=== PATIENT | female | born 1945 | race African-American/Black ===

== ENCOUNTER 2019-04-04 09:13 | Outpatient (CLI) | payer MEDICARE, MEDICAID ==
[~2019-04-04 09:13] MED LIST: ALIGN4 M1 PO; AMITIZA24 MCG ORAL; AMLODIPINE BES2.5 MG PO; DEXILANT60 MG PO; DOCUSATE CALCI240 MG PO; HYDROCODON-ACE1 EA15 ORAL; LINZESS145 MCG PO; METOPROLOL SUCC25 MG PO; PANTOPRAZOLE SO20 MG PO; POTASSIUM CHLO20 ME2 PO; SIMPONI50 MG/0.1 SQ; SIMVASTATIN10 MG ORAL; XARELTO20 MG PO
[2019-04-04] MEDS ORDERED: ASPIRIN EC81 MG ORAL (13:18)
[2019-04-04] MEDS ORDERED: SIMPONI50 MG/0.5 SQ (13:18)
[2019-04-04] MEDS ORDERED: OMEPRAZOLE40 M1 ORAL (13:18)
[2019-04-04] MEDS ORDERED: AMLODIPINE BESY10 MG ORAL (13:18)
[2019-04-04] MEDS ORDERED: CALCIUM500 M2 PO (13:18)
[2019-04-04] MEDS ORDERED: VITAMIN D2000 UNI3 PO (13:18)
[2019-04-04] MEDS ORDERED: SIMVASTATIN10 MG ORAL (13:18)
[2019-04-04] MEDS ORDERED: NORCO 10-325 T1 EACH ORAL (13:18)
[2019-04-04] MEDS ORDERED: MILK OF MA400 MG/51 ORAL (13:18)
[2019-04-04 13:22] VITALS: BP 138/70
--- NOTE | 2019-04-04 16:00 | Consultation ---
DATE OF CONSULTATION: 04/04/2019 CHIEF COMPLAINT: 1. Abdominal pain. 2. Constipation. HISTORY OF PRESENT ILLNESS: This is a very pleasant 73-year-old female known to us from 2014 and the last time when we saw her she had chronic constipation, colonic polyps, and also pancreatic cyst. The patient was referred back to us for evaluation of repeat colonoscopy given it was 5 years and also the patient has the pancreatic cyst which is growing in size, it used to be 9 mm and now it is about 12 mm. PAST MEDICAL HISTORY: 1. Hypertension. 2. Constipation. 3. Hypercholesteremia. 4. Pancreatic cyst. 5. GERD. ALLERGIES: No known allergies. MEDICATIONS: Please see medication reconciliation list. SOCIAL HISTORY: The patient denies any tobacco, alcohol, or drug abuse. FAMILY HISTORY: Noncontributory. REVIEW OF SYSTEMS: A 10-point review of systems was performed and was positive for constipation, gastroesophageal reflux disease, abdominal pain. PHYSICAL EXAMINATION: VITAL SIGNS: Temperature 98.2, blood pressure 138/70, pulse is 82, respirations 20. HEENT: Normocephalic and atraumatic. Sclerae anicteric. NECK: Supple. No evidence of obvious lymphadenopathy. CARDIOVASCULAR: Regular rate and rhythm. Plus S1 and S2. LUNGS: Decreased breath sounds bilaterally based on supine exam. ABDOMEN: Soft and nontender. No rebound. No guarding. No peritoneal sign. EXTREMITIES: No cyanosis. No clubbing. No edema. ASSESSMENT AND PLAN: This is a 73-year-old female with constipation. We will start the patient on Linzess 145 trial one tablet daily before breakfast. The patient to let us know if it works for her. 1. Colonoscopy. The patient is due for another one. The patient was given instruction for colonoscopy and the prep. The patient will call back for scheduling for colonoscopy. 2. Pancreatic cyst is growing in size. The patient needs EUS, but we decided the patient to have a colonoscopy first and then when she comes back, we are going to schedule her for EUS another day. I want to thank, Dr. Edward Vargas, for this kind referral. Jett Londono M.D. DR: Shaw JOB#: [id number] CC: Edward Vargas M.D.; Fax#: [phone]
== END 2019-04-04 11:13 | disposition home or self-care (01) ==
LOC: PAN 09:13
DX: R10.9 Unspecified abdominal pain (principal); K59.00 Constipation, unspecified; I10 Essential (primary) hypertension; E78.00 Pure hypercholesterolemia, unspecified; K21.9 Gastro-esophageal reflux disease without esophagitis; K86.2 Cyst of pancreas

== ENCOUNTER 2019-04-21 06:46 | Day surgery (SDC) | payer MEDICARE, MEDICAID ==
[2019-04-21] VITALS (9 sets, daily range): BP systolic 101–140; BP diastolic 49–73
[~2019-04-21] VITALS: Ht 167.6 cm; Wt 83.9 kg
[~2019-04-21 06:46] MED LIST changes: +AMLODIPINE BESY10 MG ORAL; +ASPIRIN EC81 MG ORAL; +CALCIUM500 M2 PO; +MILK OF MA400 MG/51 ORAL; +NORCO 10-325 T1 EACH ORAL; +OMEPRAZOLE40 M1 ORAL; +SIMPONI50 MG/0.5 SQ; +VITAMIN D2000 UNI3 PO
[2019-04-21] MEDS ORDERED: LR 1000ml 1,000 ML IVLG SCH (07:35)
[2019-04-21] MEDS ORDERED: LR 1000ml ONE (09:00)
[2019-04-21] MEDS ORDERED: Propofol 200mg/20ml IV ONE (09:00)
[2019-04-21] MEDS ORDERED: Lidocaine 1% MPF 10mg/ml 5ml ONE (09:00)
--- NOTE | 2019-04-21 09:04 | Short Stay Surgery H&P ---
History of Present Illness History of Present Illness Chief Complaint see office note HPI Willi Richardson is a 73 year old female who was admitted on for Colonoscopy Screening Patient History Allergies: Coded Allergies: IODINE (Verified Allergy, 01/10/13) Medication History Scheduled Amlodipine Besylate* (Amlodipine Besylate*), 10 MG ORAL DAILY, (Reported) Aspirin Ec* (Aspirin Ec*), 81 MG ORAL DAILY, (Reported) Calcium Carbonate (Calcium), 500 MG PO DAILY, (Reported) Cholecalciferol (Vitamin D3) (Vitamin D), 2,000 UNIT PO DAILY, (Reported) Golimumab (Simponi), 50 MG SQ QWEEK, (Reported) Magnesium Hydroxide* (Milk Of Magnesia*), 30 ML ORAL DAILY, (Reported) Omeprazole (Omeprazole), 40 MG ORAL DAILY, (Reported) Simvastatin (Zocor), 10 MG ORAL BEDTIME, (Reported) Scheduled PRN Hydrocodone Bit/Acetaminophen 10-325* ([place] 10-325*), 1 TAB ORAL Q6H PRN for For Pain, (Reported) Physical Exam Vital Signs Last Vital Signs Date Time Temp Pulse Resp B/P (MAP) Pulse Ox O2 Delivery O2 Flow Rate FiO2 04/21/19 07:34 Room Air 04/21/19 07:34 98.6 71 17 140/73 97 Plan Attestation Are the patient's medical conditions optimized for surgery? Jett Londono MD Apr 21, 2019 09:04
--- NOTE | 2019-04-21 09:04 | Pre-Procedure Note/Attestation ---
Pre-Procedure Note/Attestation Complete Prior to Procedure Planned Procedure: not applicable Procedure Narrative: colonoscopy Indications for Procedure Pre-Operative Diagnosis: screening Attestation I attest that I discussed the nature of the procedure; its benefits; risks and complications; and alternatives (and the risks and benefits of such alternatives ), prior to the procedure, with the patient (or the patient's legal entry level account representative). I attest that, if there was a reasonable possibility of needing a blood transfusion, the patient (or the patient's legal entry level account representative) was given the [facility] standardized written summary, pursuant to the Ad[place] Blood Safety Act ([place] Health and Safety Code # 1645, as amended). I attest that I re-evaluated the patient just prior to the surgery and that there has been no change in the patient's H&P, except as documented below: Jett Londono MD Apr 21, 2019 09:04
[2019-04-21 09:10] LABS: BASOPHILS % (AUTO) 1.1 % (0.0-2.0); EOSINOPHILS % (AUTO) 1.1 % (0.0-3.0); HEMATOCRIT 40.6 % (37.0-47.0); HEMOGLOBIN 13.2 G/DL (12.0-16.0); MEAN CORPUSCULAR VOLUME 83 FL (80-99); MONOCYTES % (AUTO) 8.4 % (1.0-10.0); NEUTROPHILS % (AUTO) 38.4 % (45.0-75.0); PLATELET COUNT 261 K/UL (150-450); RED BLOOD COUNT 4.89 M/UL (4.20-5.40); RED CELL DISTRIBUTION WIDTH 11.8 % (11.6-14.8)
--- NOTE | 2019-04-21 09:24 | Anethesia Preoperative Eval ---
Anesthesia Pre-op PMH/ROS General Date of Evaluation: Apr 21, 2019 Time of Evaluation: 08:50 Anesthesiologist: Kari Alejandro CRNA ASA Score: ASA 3 Mallampati Score Class I : Soft palate, uvula, fauces, pillars visible Class II: Soft palate, uvula, fauces visible Class III: Soft palate, base of uvula visible Class IV: Only hard plate visible Mallampati Classification: Class III Surgeon: Isra Diagnosis: Colon Screening Surgical Procedure: Colonoscopy Anesthesia History: none Family History: no anesthesia problems Allergies: Coded Allergies: IODINE (Verified Allergy, 01/10/13) Medications: see eMAR Patient NPO?: Yes NPO Date: Apr 21, 2019 NPO Time: 00:00 Past Medical History Cardiovascular: Reports: HTN, other - Hypercholesterolemia; Denies: CAD, [place], valve dz, arrhythmia Pulmonary: Reports: other - Pulmonary embolism; Denies: asthma, COPD, JAMMIE Gastrointestinal/Genitourinary: Reports: GERD, other - pancreatic cyst; Denies: CRI, ESRD Neurologic/Psychiatric: Reports: CVA - 2013; RT sided weakness; Denies: dementia, depression/anxiety, TIA, other Endocrine: Denies: DM, hypothyroidism, steroids, other HEENT: Reports: other - parathyroid mass s/p parathyroidectomy; Denies: cataract (L), cataract (R), glaucoma, CIRCLE (L), CIRCLE (R) Hematology/Immune: Denies: anemia, DVT, bleeding disorder, other Musculoskeletal/Integumentary: Reports: OA; Denies: RA, DJD, DDD, edema, other PMH Narrative: as noted above PSxH Narrative: appendectomy, hysterectomy, colonoscopy, parathyroidectomy Anesthesia Pre-op Phys. Exam Physician Exam Last Vital Signs Date Time Temp Pulse Resp B/P (MAP) Pulse Ox O2 Delivery O2 Flow Rate FiO2 04/21/19 07:34 Room Air 04/21/19 07:34 98.6 71 17 140/73 97 Constitutional: NAD Neurologic: other Cardiovascular: RRR Respiratory: CTA Gastrointestinal: S/NT/ND Airway Exam Mallampati Score: Class II MO: full Neck: FROM TMD: > 3 FB Teeth: intact Dentures: no upper, no lower Anesthesia Pre-op A/P Studies Pre-op Studies: EKG - 1st degree HD Risk Assessment & Plan Assessment: ASA 3. ok to proceed Plan: MAC Status Change Before Surgery: No Pre-Antibiotics Given Within 1 Hr of Incision: No Kari Alejandro CRNA Apr 21, 2019 09:24
[2019-04-21 09:31] LABS: ALANINE AMINOTRANSFERASE 24 U/L (12-78); ALKALINE PHOSPHATASE 109 U/L (46-116); AMYLASE 53 U/L (25-115); ANION GAP 6 mmol/L (5-15); ASPARTATE AMINO TRANSFERASE 15 U/L (15-37); BILIRUBIN,TOTAL 0.6 MG/DL (0.2-1.0); BLOOD UREA NITROGEN 13 mg/dL (7-18); CALCIUM 9.5 MG/DL (8.5-10.1); CARBON DIOXIDE 30 MMOL/L (21-32); CHLORIDE 106 MMOL/L (98-107); CREATININE 0.8 MG/DL (0.55-1.30); POTASSIUM 4.1 MMOL/L (3.5-5.1); SODIUM 142 MMOL/L (136-145)
--- NOTE | 2019-04-21 09:32 | Endoscopy Procedure Note ---
Endoscopy Procedure Note General Indication for Procedure: colon cancer h/o Procedures Performed: colonoscopy Operative Findings/Diagnosis: hemorrhoids Specimen: none Pt Tolerated Procedure Well: Yes Estimated Blood Loss: none Anesthesia Anesthesiologist: charles Anesthesia: MAC Inserted Devices Implant(s) used?: No Quality Quality of Bowel Preparation: Good Did scope reach the cecum?: Yes Was there any complications?: No GI Core Measures 50 yrs or older w/o bx or poly: No 10yrs. F/U recommended: Yes If not recommended, why?: Above average risk 18 years or older w/prev. colo: Yes <3yrs. since last colonoscopy: No Jett Londono MD Apr 21, 2019 09:32
--- NOTE | 2019-04-21 09:42 | Immediate Post-Op Evaluation ---
Immediate Post-Op Evalulation Immediate Post-Op Evalulation Procedure: diagnostic colonoscopy Date of Evaluation: Apr 21, 2019 Time of Evaluation: 09:40 IV Fluids: LR 500 ml Blood Pressure Systolic: 123 Blood Pressure Diastolic: 49 Pulse Rate: 72 Respiratory Rate: 20 O2 Sat by Pulse Oximetry: 100 Temperature (Fahrenheit): 97.7 Pain Score (1-10): 0 Nausea: No Vomiting: No Complications none Patient Status: awake, patent Hydration Status: adequate Given Within 1 Hr of Incision: Kari Malagon CRNA Apr 21, 2019 09:42
--- NOTE | 2019-04-21 11:18 | 48 Hour Post Anesthesia Eval ---
Post Anesthesia Evaluation Procedure: diagnostic colonoscopy Date of Evaluation: Apr 21, 2019 Time of Evaluation: 11:16 Blood Pressure Systolic: 129 0: 69 Pulse Rate: 70 Respiratory Rate: 22 Temperature (Fahrenheit): 97.6 O2 Sat by Pulse Oximetry: 97 Airway: patent Nausea: No Vomiting: No Pain Intensity: 0 Hydration Status: adequate Cardiopulmonary Status: stable Mental Status/LOC: patient returned to baseline Follow-up Care/Observations: per GI Post-Anesthesia Complications: none Follow-up care needed: N/A Kari Alejandro CRNA Apr 21, 2019 11:18
--- NOTE | 2019-04-21 15:45 | Procedure Note ---
DATE OF PROCEDURE: 04/21/2019 SURGEON: Jett Londono M.D. PROCEDURE: Colonoscopy. ANESTHESIA: Per Kari BEY. INSTRUMENT: Olympus adult flexible colonoscope. INDICATION: History of colon cancer, followup colonoscopy. REASON FOR PROCEDURE: The procedure, risks, benefits, and possible consequences, including hemorrhage, aspiration, perforation and infection, and alternative treatments, were explained to the patient/legal guardian by Dr. Jett Londono and the patient/legal guardian understood and accepted these risks. DESCRIPTION OF PROCEDURE: After informed consent was obtained and the patient was adequately sedated, first rectal exam performed, which was positive for internal hemorrhoids. Then the scope was advanced from the rectum into the cecum documented by appendiceal orifice, ileocecal valve, and right upper quadrant palpation. This procedure was very challenging given prior colonic surgeries. Quality of prep overall was good. The patient had evidence of no obvious mass or polyp seen in this colonoscopy examination. Retroflexion of rectum was performed, which showed evidence of internal hemorrhoids. SUMMARY OF FINDINGS: 1. Challenging colonoscopy. We were able to get into the cecum. 2. Internal hemorrhoids. RECOMMENDATIONS: Repeat colonoscopy in one year. I want to thank Dr. Edward Vargas for this kind referral. Jett Londono M.D. DR: CARLOS JOB#: [id number] CC: Edward Vargas M.D.; Fax#: [phone]
== END 2019-04-21 10:50 | disposition home or self-care (01) ==
LOC: GAS 06:46
DX: Z12.11 Encounter for screening for malignant neoplasm of colon (principal); K64.8 Other hemorrhoids; I10 Essential (primary) hypertension; E78.00 Pure hypercholesterolemia, unspecified; K21.9 Gastro-esophageal reflux disease without esophagitis; G81.91 Hemiplegia, unspecified affecting right dominant side; Z90.89 Acquired absence of other organs; Z90.710 Acquired absence of both cervix and uterus; E89.0 Postprocedural hypothyroidism; Z86.711 Personal history of pulmonary embolism; Z85.038 Personal history of other malignant neoplasm of large intestine
CPT/HCPCS: 36415; 80053; 82150; 83690; 85025; 93005; G0121; J2704; J7120; 94003; 94150

== ENCOUNTER 2019-05-05 08:11 | Day surgery (SDC) | payer MEDICARE, MEDICAID ==
[2019-05-05] VITALS (11 sets, daily range): BP systolic 97–128; BP diastolic 45–74
[~2019-05-05] VITALS: Ht 170.2 cm; Wt 83.9 kg
[~2019-05-05 08:11] MED LIST changes: +LR 1000ml 1,000 ML IV SCH
[2019-05-05] MEDS ORDERED: LIPITOR20 MG ORAL (09:16)
--- NOTE | 2019-05-05 09:36 | Anethesia Preoperative Eval ---
Anesthesia Pre-op PMH/ROS General Date of Evaluation: May 05, 2019 Time of Evaluation: 10:00 Anesthesiologist: Kari Alejandro CRNA ASA Score: ASA 3 Mallampati Score Class I : Soft palate, uvula, fauces, pillars visible Class II: Soft palate, uvula, fauces visible Class III: Soft palate, base of uvula visible Class IV: Only hard plate visible Mallampati Classification: Class II Surgeon: Spring Diagnosis: GERD, pancreatic cyst Surgical Procedure: EUS Family History: no anesthesia problems Allergies: Coded Allergies: IODINE (Verified Allergy, Severe, HIVES, 05/05/19) Medications: see eMAR Patient NPO?: Yes NPO Date: May 05, 2019 NPO Time: 00:00 Past Medical History Cardiovascular: Reports: HTN, other - hypercholesterolemia, c/o angina, palpitations intermittently; Denies: CAD, [place], valve dz, arrhythmia Pulmonary: Denies: asthma, COPD, JAMMIE, other Gastrointestinal/Genitourinary: Reports: GERD, other - pancreatic cyst; Denies: CRI, ESRD Neurologic/Psychiatric: Reports: CVA; Denies: dementia, depression/anxiety, TIA, other Endocrine: Denies: DM, hypothyroidism, steroids, other HEENT: 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 Exam Physician Exam Last Vital Signs Date Time Temp Pulse Resp B/P (MAP) Pulse Ox O2 Delivery O2 Flow Rate FiO2 05/05/19 09:16 Room Air 05/05/19 09:03 98.2 66 18 111/73 96 Constitutional: NAD Neurologic: other - alert & oriented x 3 Cardiovascular: RRR Respiratory: CTA Gastrointestinal: S/NT/ND Airway Exam Mallampati Score: Class II MO: full Neck: FROM TMD: > 3 FB ROM: full Teeth: missing Dentures: no upper, no lower Anesthesia Pre-op A/P Studies Pre-op Studies: EKG - NSR, possible anterior infarct Risk Assessment & Plan Assessment: ASA 3, ok to proceed Plan: MAC Status Change Before Surgery: No Pre-Antibiotics Given Within 1 Hr of Incision: Kari Malagon CRNA May 05, 2019 09:36
--- NOTE | 2019-05-05 09:58 | Pre-Procedure Note/Attestation ---
Pre-Procedure Note/Attestation Complete Prior to Procedure Planned Procedure: not applicable Procedure Narrative: eus Indications for Procedure Pre-Operative Diagnosis: panc cyst Attestation I attest that I discussed the nature of the procedure; its benefits; risks and complications; and alternatives (and the risks and benefits of such alternatives ), prior to the procedure, with the patient (or the patient's legal guest relations representative). I attest that, if there was a reasonable possibility of needing a blood transfusion, the patient (or the patient's legal guest relations representative) was given the [facility] standardized written summary, pursuant to the Adi [place] Blood Safety Act ([place] Health and Safety Code # 1645, as amended). I attest that I re-evaluated the patient just prior to the surgery and that there has been no change in the patient's H&P, except as documented below: Jett Londono MD May 05, 2019 09:58
--- NOTE | 2019-05-05 09:59 | Short Stay Surgery H&P ---
History of Present Illness History of Present Illness Chief Complaint panc cyst HPI Willi Richardson is a 73 year old female who was admitted on for Pancreatic Cyst Patient History Allergies: Coded Allergies: IODINE (Verified Allergy, Severe, HIVES, 05/05/19) PAST MEDICAL HISTORY: (1) CVA (cerebral infarction) (2) Hypernatremia (3) Colon polyps (4) HTN (hypertension) (5) GERD (gastroesophageal reflux disease) (6) DVT (deep venous thrombosis) (7) Weight loss (8) Hypercholesteremia (9) Constipation (10) ACS (acute coronary syndrome) (11) Pulmonary embolus (12) Elevated LFTs Medication History Scheduled Amlodipine Besylate* (Amlodipine Besylate*), 10 MG ORAL DAILY, (Reported) Aspirin Ec* (Aspirin Ec*), 81 MG ORAL DAILY, (Reported) Atorvastatin Calcium* (Lipitor*), 20 MG ORAL BEDTIME, (Reported) Calcium Carbonate (Calcium), 500 MG PO DAILY, (Reported) Cholecalciferol (Vitamin D3) (Vitamin D), 2,000 UNIT PO DAILY, (Reported) Golimumab (Simponi), 50 MG SQ once a month, (Reported) Magnesium Hydroxide* (Milk Of Magnesia*), 30 ML ORAL DAILY, (Reported) Scheduled PRN Hydrocodone Bit/Acetaminophen 10-325* ([place] 10-325*), 1 TAB ORAL Q6H PRN for For Pain, (Reported) Discontinued Medications Omeprazole (Omeprazole), 40 MG ORAL DAILY, (Reported) Discontinued Reason: Pt stopped taking med Simvastatin (Zocor), 10 MG ORAL BEDTIME, (Reported) Discontinued Reason: Pt stopped taking med Review of Systems Cardiovascular: Reports: no symptoms Respiratory: Reports: no symptoms Skeletal: Reports: no symptoms Gastrointestinal: Reports: no symptoms Genitourinary: Reports: no symptoms Neurologic: Reports: no symptoms Endocrine: Reports: no symptoms Hematologic: Reports: no symptoms Physical Exam Vital Signs Last Vital Signs Date Time Temp Pulse Resp B/P (MAP) Pulse Ox O2 Delivery O2 Flow Rate FiO2 05/05/19 09:16 Room Air 05/05/19 09:03 98.2 66 18 111/73 96 Skin: normal HENT: normal Heart: normal Lungs: normal Abdomen: normal Extremities: normal Plan Plan of Care eus Attestation Are the patient's medical conditions optimized for surgery? Attestation Response: yes Jett Londono MD May 05, 2019 09:58
[2019-05-05] MEDS ORDERED: Lidocaine 1% MPF 10mg/ml 5ml ONE (10:00)
[2019-05-05] MEDS ORDERED: LR 1000ml ONE (10:00)
[2019-05-05] MEDS ORDERED: Propofol 200mg/20ml IV ONE (10:00)
--- NOTE | 2019-05-05 10:46 | Endoscopy Procedure Note ---
Endoscopy Procedure Note General Indication for Procedure: panc cyst Procedures Performed: EGD, other - EUS Operative Findings/Diagnosis: gastritis Specimen: yes Pt Tolerated Procedure Well: Yes Estimated Blood Loss: none Anesthesia Anesthesiologist: charles Anesthesia: MAC Inserted Devices Implant(s) used?: No GI Core Measures 50 yrs or older w/o bx or poly: Not Applicable 10yrs. F/U recommended: Not Applicable Jett Londono MD May 05, 2019 10:46
--- NOTE | 2019-05-05 11:00 | Immediate Post-Op Evaluation ---
Immediate Post-Op Evalulation Immediate Post-Op Evalulation Procedure: EUS Date of Evaluation: May 05, 2019 Time of Evaluation: 10:59 IV Fluids: LR 500 ml Blood Pressure Systolic: 100 Blood Pressure Diastolic: 71 Pulse Rate: 75 Respiratory Rate: 22 O2 Sat by Pulse Oximetry: 100 Temperature (Fahrenheit): 97.9 Pain Score (1-10): 0 Nausea: No Vomiting: No Complications none Patient Status: awake, reacts, patent Hydration Status: adequate Given Within 1 Hr of Incision: Kari Malagon CRNA May 05, 2019 11:00
--- NOTE | 2019-05-05 11:38 | 48 Hour Post Anesthesia Eval ---
Post Anesthesia Evaluation Procedure: EUS Date of Evaluation: May 05, 2019 Time of Evaluation: 11:37 Blood Pressure Systolic: 113 0: 59 Pulse Rate: 66 Respiratory Rate: 18 Temperature (Fahrenheit): 98.0 O2 Sat by Pulse Oximetry: 97 Airway: patent Nausea: No Vomiting: No Pain Intensity: 0 Hydration Status: adequate Cardiopulmonary Status: stable Mental Status/LOC: patient returned to baseline Follow-up Care/Observations: per GI Post-Anesthesia Complications: none Follow-up care needed: N/A Kari Alejandro CRNA May 05, 2019 11:38
--- NOTE | 2019-05-05 16:15 | Procedure Note ---
DATE OF PROCEDURE: 05/05/2019 SURGEON: Jett Londono M.D. REFERRING PHYSICIAN: Edward Vargas M.D. PROCEDURE: Upper endoscopy with biopsy and endoscopic ultrasound. ANESTHESIA: Per Kari BEY. INSTRUMENT: Olympus upper endoscope and EUS scope. INDICATION: Pancreatic cyst, abdominal pain. REASON FOR PROCEDURE: The procedure, risks, benefits, and possible consequences, including hemorrhage, aspiration, perforation and infection, and alternative treatments, were explained to the patient/legal guardian by Dr. Jett Londono and the patient/legal guardian understood and accepted these risks. PROCEDURE IN DETAIL: After informed consent was obtained and the patient was adequately sedated, Olympus upper endoscope was advanced from mouth into the second portion of the duodenum and retroflexion was performed in the stomach. The patient has evidence of diffuse mild gastritis. Random biopsy from antrum was obtained to rule out H. pylori infection. At this time, the upper endoscope was retrieved and EUS scope was introduced. Starting scanning at gastroesophageal junction we looked at the pancreatic body and tail while the scope was kept in the stomach and then in the duodenum, we evaluated the head of the pancreas. The patient had no evidence of any obvious pancreatic cyst seen in this endoscopy examination. The patient had some parenchymal changes in the head of the pancreas suggestive of minimum pancreatitis. No pancreatic duct dilatation was seen. Common bile duct measured maximum diameter about 4.5 mm. No obvious stone seen in the common bile duct. At this time, the scope was removed and procedure was terminated. SUMMARY OF FINDINGS: 1. Gastritis, status post biopsy. 2. No obvious pancreatic cyst seen in this examination. 3. Mild irregularity of the mucosa of parenchyma in the pancreas head suggestive of maybe mild chronic pancreatitis. 4. No pancreatic or common bile duct dilatation. RECOMMENDATIONS: 1. Follow up biopsy result. 2. The patient to follow in the office for further workup of her symptoms. I want to thank Dr. Vargas for this kind referral. Jett Londono M.D. DR: SRINI JOB#: [id number] CC: Edward Vargas M.D.; Fax#: [phone]
== END 2019-05-05 12:10 | disposition home or self-care (01) ==
LOC: GAS 08:11
DX: R10.9 Unspecified abdominal pain (principal); I10 Essential (primary) hypertension; K29.50 Unspecified chronic gastritis without bleeding; Z86.73 Personal history of transient ischemic attack (TIA), and cerebral infarction without residual deficits; K21.9 Gastro-esophageal reflux disease without esophagitis; Z86.718 Personal history of other venous thrombosis and embolism; E78.00 Pure hypercholesterolemia, unspecified; Z86.711 Personal history of pulmonary embolism; Z79.82 Long term (current) use of aspirin; Z91.041 Radiographic dye allergy status
CPT/HCPCS: 43239; 43259; 93005; J2704; J7120; 94003; 94150

== ENCOUNTER 2019-05-17 12:18 | Outpatient (CLI) | payer MEDICARE, MEDICAID ==
[~2019-05-17 12:18] MED LIST changes: +LIPITOR20 MG ORAL; -LR 1000ml 1,000 ML IV SCH
--- NOTE | 2019-05-17 12:54 | General Progress Note ---
Assessment/Plan Assessment/Plan: 1. Hypertension. 2. Constipation. 3. Hypercholesteremia. 4. Pancreatic cyst. 5. GERD. 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 Arthritis EUS reviewed with the patient add [employer] RTC 2 months Subjective ROS Limited/Unobtainable: Yes Allergies: Coded Allergies: IODINE (Verified Allergy, Severe, HIVES, 05/05/19) Objective General Appearance: alert EENT: normal ENT inspection Neck: supple Cardiovascular: normal rate Respiratory/Chest: lungs clear Abdomen: normal bowel sounds, non tender, soft Extremities: non-tender Jett Londono MD May 17, 2019 12:53
== END 2019-05-17 14:18 | disposition home or self-care (01) ==
LOC: PAN 12:18
DX: K59.00 Constipation, unspecified (principal); I10 Essential (primary) hypertension; E78.00 Pure hypercholesterolemia, unspecified; K21.9 Gastro-esophageal reflux disease without esophagitis; M19.90 Unspecified osteoarthritis, unspecified site; B96.81 Helicobacter pylori [H. pylori] as the cause of diseases classified elsewhere; Z91.041 Radiographic dye allergy status
CPT/HCPCS: 99212